=== PATIENT | male | born 1955 | race Two or more races ===

== ENCOUNTER 2021-12-15 09:55 | Outpatient (CLI) | payer MEDICARE, OTHER ==
[2021-12-15] MEDS ORDERED: ETHYL CHLORIDE SPRAY 1 EA BOTTLE TP ONE (09:56)
[2021-12-15] MEDS ORDERED: LIDOCAINE HCL/MPF 1% 30 ML VIAL IJ ONE (10:52)
[2021-12-15] MEDS ORDERED: BACI/NEOM/POLY B OINT PKT 1 UDPKT PACKET ONE (11:14)
== END 2021-12-15 23:59 | disposition home or self-care (01) ==
LOC: WOU 09:55
PROVIDERS: ATTEND Podiatrist Foot & Ankle Surgery
DX: L60.0 Ingrowing nail (principal); L03.032 Cellulitis of left toe; M79.675 Pain in left toe(s); E11.9 Type 2 diabetes mellitus without complications; Z79.84 Long term (current) use of oral hypoglycemic drugs; I10 Essential (primary) hypertension
CPT/HCPCS: 11730; J3490

== ENCOUNTER 2021-12-22 10:05 | Outpatient (CLI) | payer MEDICARE, OTHER ==
[2021-12-22] MEDS ORDERED: BACI/NEOM/POLY B OINT PKT 1 UDPKT PACKET ONE (10:31)
== END 2021-12-22 23:59 | disposition home or self-care (01) ==
LOC: WOU 10:05
PROVIDERS: ATTEND Podiatrist Foot & Ankle Surgery
DX: M79.675 Pain in left toe(s) (principal); R60.0 Localized edema; M79.674 Pain in right toe(s); E11.9 Type 2 diabetes mellitus without complications; I10 Essential (primary) hypertension; E78.00 Pure hypercholesterolemia, unspecified; Z79.84 Long term (current) use of oral hypoglycemic drugs; Z79.899 Other long term (current) drug therapy
CPT/HCPCS: G0463

== ENCOUNTER 2021-12-29 09:50 | Outpatient (CLI) | payer MEDICARE, OTHER ==
[2021-12-29] MEDS ORDERED: LIDOCAINE HCL/MPF 1% 30 ML VIAL IJ ONE (10:15)
[2021-12-29] MEDS ORDERED: MUPIROCIN 2% CREAM 15 GM TUBE TP ONE (10:49)
[2021-12-29] MEDS ORDERED: ETHYL CHLORIDE SPRAY 1 EA BOTTLE TP ONE (11:00)
== END 2021-12-29 23:59 | disposition home or self-care (01) ==
LOC: WOU 09:50
PROVIDERS: ATTEND Podiatrist Foot & Ankle Surgery
DX: L60.0 Ingrowing nail (principal); E11.9 Type 2 diabetes mellitus without complications; I10 Essential (primary) hypertension; E78.00 Pure hypercholesterolemia, unspecified; Z79.84 Long term (current) use of oral hypoglycemic drugs; Z79.899 Other long term (current) drug therapy
CPT/HCPCS: 11730; J3490

== ENCOUNTER → 2022-01-05 | Outpatient (CLI) | payer MEDICARE, OTHER ==
[~2022-01-05] MED LIST: MUPIROCIN 2% CREAM 15 GM TUBE TP ONE
== END | disposition home or self-care (01) ==
LOC: WOU 10:00
PROVIDERS: ATTEND Podiatrist Foot & Ankle Surgery
DX: L60.0 Ingrowing nail (principal); S80.862A Insect bite (nonvenomous), left lower leg, initial encounter; S80.861A Insect bite (nonvenomous), right lower leg, initial encounter; W57.XXXA Bitten or stung by nonvenomous insect and other nonvenomous arthropods, initial encounter; Y92.89 Other specified places as the place of occurrence of the external cause; R60.0 Localized edema; M79.674 Pain in right toe(s); E11.9 Type 2 diabetes mellitus without complications; Z79.84 Long term (current) use of oral hypoglycemic drugs; I10 Essential (primary) hypertension
CPT/HCPCS: G0463

== ENCOUNTER 2022-01-26 09:40 | Outpatient (CLI) | payer MEDICARE, OTHER ==
[2022-01-26] MEDS ORDERED: ETHYL CHLORIDE SPRAY 1 EA BOTTLE TP ONE (09:41)
[2022-01-26] MEDS ORDERED: LIDOCAINE HCL/MPF 1% 30 ML VIAL IJ ONE (10:33)
[2022-01-26] MEDS ORDERED: MUPIROCIN 2% CREAM 15 GM TUBE TP ONE (11:00)
== END 2022-01-26 23:59 | disposition home or self-care (01) ==
LOC: WOU 09:40
PROVIDERS: ATTEND Podiatrist Foot & Ankle Surgery
DX: L60.0 Ingrowing nail (principal); R60.0 Localized edema; E11.9 Type 2 diabetes mellitus without complications; Z79.84 Long term (current) use of oral hypoglycemic drugs; M79.674 Pain in right toe(s); I10 Essential (primary) hypertension
CPT/HCPCS: 11730; J3490

== ENCOUNTER 2022-02-02 09:50 | Outpatient (CLI) | payer MEDICARE, OTHER | END 2022-02-02 23:59 | disposition home or self-care (01) | LOC: WOU 09:50 | PROVIDERS: ATTEND Podiatrist Foot & Ankle Surgery | DX: L60.0 Ingrowing nail (principal); L84 Corns and callosities; M79.674 Pain in right toe(s); R60.0 Localized edema; I10 Essential (primary) hypertension; E78.00 Pure hypercholesterolemia, unspecified; E11.9 Type 2 diabetes mellitus without complications; Z79.84 Long term (current) use of oral hypoglycemic drugs | CPT/HCPCS: G0463 ==

== ENCOUNTER 2022-05-11 10:37 | Outpatient (CLI) | payer MEDICARE, OTHER | END 2022-05-11 23:59 | disposition home or self-care (01) | LOC: WOU 10:37 | PROVIDERS: ATTEND Podiatrist Foot & Ankle Surgery | DX: Z09 Encounter for follow-up examination after completed treatment for conditions other than malignant neoplasm (principal); R60.0 Localized edema; M79.674 Pain in right toe(s); E11.9 Type 2 diabetes mellitus without complications; I10 Essential (primary) hypertension; Z79.84 Long term (current) use of oral hypoglycemic drugs; Z79.899 Other long term (current) drug therapy | CPT/HCPCS: G0463 ==

== ENCOUNTER 2022-09-18 10:27 | Outpatient (CLI) | payer MEDICARE, OTHER ==
[2022-09-18] MEDS ORDERED: LIDOCAINE 2% 20 ML MDV ONE (11:00)
[2022-09-18] MEDS ORDERED: BACI/NEOM/POLY B OINT PKT 1 UDPKT PACKET ONE (11:21)
== END 2022-09-18 23:59 | disposition home or self-care (01) ==
LOC: WOU 10:27
PROVIDERS: ATTEND Podiatrist Foot & Ankle Surgery
DX: L60.0 Ingrowing nail (principal); M79.675 Pain in left toe(s); R60.0 Localized edema; E11.9 Type 2 diabetes mellitus without complications; Z79.84 Long term (current) use of oral hypoglycemic drugs
CPT/HCPCS: 11730; J3490

== ENCOUNTER 2022-09-25 10:24 | Outpatient (CLI) | payer MEDICARE, OTHER ==
[2022-09-25] MEDS ORDERED: BACI/NEOM/POLY B OINT PKT 1 UDPKT PACKET ONE (11:27)
== END 2022-09-25 23:59 | disposition home or self-care (01) ==
LOC: WOU 10:24
PROVIDERS: ATTEND Podiatrist Foot & Ankle Surgery
DX: L60.0 Ingrowing nail (principal); R60.0 Localized edema; M79.674 Pain in right toe(s); E11.9 Type 2 diabetes mellitus without complications; Z79.84 Long term (current) use of oral hypoglycemic drugs; I10 Essential (primary) hypertension
CPT/HCPCS: 11730; J3490

== ENCOUNTER 2022-10-02 10:26 | Outpatient (CLI) | payer MEDICARE, OTHER | END 2022-10-02 23:59 | disposition home or self-care (01) | LOC: WOU 10:26 | PROVIDERS: ATTEND Podiatrist Foot & Ankle Surgery | DX: L60.0 Ingrowing nail (principal); M79.674 Pain in right toe(s); R60.0 Localized edema | CPT/HCPCS: G0463 ==